=== PATIENT | female | born 1995 | race Asian ===

== ENCOUNTER → 2017-10-14 | Emergency (ER) | payer MEDICAID ==
[~2017-10-14] VITALS: Ht 157.5 cm; Wt 72.6 kg
[~2017-10-14] MED LIST: BACTROBAN 2% OI15 GM TOPIC; KEFLEX250 M1 PO
[2017-10-14 15:15] VITALS: BP 133/63
[2017-10-14 15:19] VITALS: BP 133/63
--- NOTE | 2017-10-14 15:43 | Emergency Room Report ---
History of Present Illness General Chief Complaint: Skin Rash/Abscess Source: Patient Present Illness HPI The patient is a 22-year-old female presenting for facial rash. She noticed this for days prior. She is having a 4/10 burning sensation with the rash. It is below the lower lip and on the left eyelid. She denies any known sick contacts. She states that she had something similar in the past which resolved on its own. He has not tried any medications yet. She denies any other symptoms including fever, chills, changes in vision, sore throat, cough Allergies: Coded Allergies: No Known Allergies (Unverified , 10/14/17) Patient History Past Medical History: see triage record Pertinent Family History: none Last Menstrual Period: One week ago Now: No Reviewed Nursing Documentation: PMH: Agreed, PSxH: Agreed Nursing Documentation-PMH Past Medical History: No Stated History Review of Systems All Other Systems: negative except mentioned in HPI Physical Exam Vital Signs Date Time Temp Pulse Resp B/P (MAP) Pulse Ox O2 Delivery O2 Flow Rate FiO2 10/14/17 14:29 98.1 75 16 145/87 98 Room Air Sp02 EP Interpretation: reviewed, normal General Appearance: no apparent distress, alert, GCS 15, non-toxic Head: normocephalic, atraumatic Eyes: left eye lid inflammation - upper, bilateral eye PERRL, bilateral eye EOMI ENT: hearing grossly normal, normal pharynx, no angioedema, normal voice Neck: full range of motion, supple/symm/no masses Respiratory: chest non-tender, lungs clear, normal breath sounds, speaking full sentences Musculoskeletal: back normal, gait/station normal, normal range of motion, non- tender Neurologic: alert, oriented x3, responsive, motor strength/tone normal, sensory intact, speech normal Psychiatric: judgement/insight normal, memory normal, mood/affect normal, no suicidal/homicidal ideation Skin: rash - There is a circular erythematous lesion with honey-colored crusting inferior to the lower left lip. Similar lesion on the left upper eyelid. Medical Decision Making PA Attestation Dr. Gordillo is my supervising physician. Patient management was discussed with my supervising physician Diagnostic Impression: Primary Impression: Cellulitis Qualified Codes: L03.211 - Cellulitis of face ER Course The patient is a 22-year-old female presenting for facial rash. Ddx considered include but not limited to insect bite, impetigo, contact dermatitis, eczema, cellulitis, blepharitis, herpes, among others PE: Afebrile. NAD There is a circular erythematous lesion with honey-colored crusting inferior to the lower left lip. Similar lesion on the left upper eyelid. Eye globe is unaffected. No lymphadenopathy Otherwise exam unremarkable The patient will be treated with mupirocin and Keflex and needs to followup with her primary doctor. She was told to return if symptoms do not resolve in one week. ER precautions given Last Vital Signs Date Time Temp Pulse Resp B/P (MAP) Pulse Ox O2 Delivery O2 Flow Rate FiO2 10/14/17 15:19 78 16 133/63 97 Room Air 10/14/17 15:15 98.0 Status: improved Disposition: HOME, SELF-CARE Condition: Improved Scripts Cephalexin (Keflex) 250 Mg Capsule 250 MG PO QID for 7 Days, CAP Prov: QUIANA HERNANDEZ P.A. 10/14/17 Mupirocin (Mupirocin) 22 Gm Oint...g. 1 APPLIC TOPIC BID for 5 Days, GM Prov: QUIANA HERNANDEZ P.A. 10/14/17 Patient Instructions: Rash, Impetigo, Adult Additional Instructions: I discussed my findings with the patient. All questions and concerns have been answered. Treatment and medication compliance have been addressed. Return to ED if symptoms worsen, new symptoms arise, or if needed for any reason. Patient verbalized understanding of discharge instructions. Please followup with your doctor as soon as possible. Please return to emergency Department if the rash does not improve within 5 days. QUIAAN HERNANDEZ Oct 14, 2017 15:43
== END | disposition home or self-care (01) ==
LOC: EMR 15:15
DX: L03.211 Cellulitis of face (principal)
CPT/HCPCS: 99283